=== PATIENT | female | born 1960 ===

== ENCOUNTER 2021-05-22 02:13 | Inpatient (IN) | payer MEDICAID, OTHER ==
[~2021-05-22] VITALS: Ht 157.5 cm; Wt 74.4 kg
--- NOTE | 2021-05-22 02:24 | NUR ---
CODE NEURO [email or web address]
[2021-05-22] MEDS ORDERED: SODIUM CHLORIDE FLUSH 10ML SYR IVF ONE (02:30)
[2021-05-22] MEDS ORDERED: LORazepam 2 MG/ML, 1ML ONE (02:38)
[2021-05-22] MEDS ORDERED: QUET100T4 PO (02:49)
--- NOTE | 2021-05-22 02:58 | NUR ---
BIB [facility] CODE [facility]O, PT UNABLE TO ANSWER QUESTIONS UPON 1ST PRESENTATION, PT WENT TO CT AND BACK TO T 4, TELE NEURO IN ROOM FOR ASSESSMENT, PT STARTED CRYING AND ANXIOUS, ATIVAN GIVEN PER MD LUCAS, PT CALMED EASILY, AND ABLE TO TALK NORMALLY AND ANSWER QUESTIONS, PT IS [employer] FROM [employer] AND IS STAYING IN A HOTEL IN [place] WITH HER SON
[2021-05-22 03:00] LABS: BASOPHILS % (AUTO) 0 % (0-1); EOSINOPHILS % (AUTO) 0 % (1-7); LYMPHOCYTES % (AUTO) 24 % (22-44); MEAN CORPUSCULAR HEMOGLOBIN 31.6 pg (27.0-34.8); MEAN CORPUSCULAR HGB CONC 33.9 g/dL (32.4-35.8); MONOCYTES % (AUTO) 8 % (2-9); NEUTROPHILS % (AUTO) 67 % (42-75); PLATELET COUNT 291 x10^3/uL (130-400); RED BLOOD COUNT 4.77 x10^6/uL (3.82-5.3); RED CELL DISTRIBUTION WIDTH 13.2 % (9.6-15.2)
[2021-05-22] MEDS ORDERED: PLEASE ENTER HEIGHT AND WEIGHT MC SCH (03:00)
[2021-05-22] MEDS ORDERED: LORazepam 2 MG/ML, 1ML IVPush ONE ×2 (03:00)
[2021-05-22] MEDS ORDERED: SODIUM CHLORIDE 0.9% 1,000ML IVBOLUS ONE (03:00)
[2021-05-22 03:08] LABS: CHLORIDE 105 mmol/L (98-107)
[2021-05-22 03:09] LABS: ALANINE AMINOTRANSFERASE 71 U/L (12-78); ALBUMIN 3.9 g/dL (3.4-5.0); ANION GAP 9 mmol/L (5-15); CALCIUM 9.3 mg/dL (8.5-10.1); CREATININE 0.66 mg/dL (0.55-1.02); SALICYLATE LEVEL 3.3 mg/dL (2.8-20.0)
[2021-05-22 03:10] LABS: ALKALINE PHOSPHATASE 92 U/L (45-117); BILIRUBIN,TOTAL 0.6 mg/dL (0.2-1.0); TOTAL PROTEIN 7.1 g/dL (6.4-8.2)
[2021-05-22 03:11] LABS: INTERNATIONAL NORMALIZED RATIO 1.02 (0.93-1.1); PROTHROMBIN TIME 10.9 Seconds (9.6-11.5)
--- NOTE | 2021-05-22 03:26 | NUR ---
PT BACK FROM [facility] AND RESTING ON [facility] A
[2021-05-22] MEDS ORDERED: OMNIPAQUE 350 MG/ML, 100ML BOTTLE ONE (03:40)
--- NOTE | 2021-05-22 04:24 | NUR ---
REPORT TO DULCE, PT MOVED TO 43
--- NOTE | 2021-05-22 04:24 | NUR ---
REPORT RECIEVED FROM OG BALTAZAR
[2021-05-22] MEDS ORDERED: ONDANSETRON 2MG/ML, 2ML IVPush PRN (05:00)
[2021-05-22] MEDS ORDERED: GLUCAGON 1 MG IM PRN (05:00)
[2021-05-22] MEDS ORDERED: MELATONIN 5 MG TABLET PO PRN (05:00)
[2021-05-22] MEDS ORDERED: DEXTROSE 50%, 50ML SYRINGE IVPush PRN (05:00)
[2021-05-22] MEDS ORDERED: DEXTROSE 4 GM TAB.CHEW PO PRN (05:00)
--- NOTE | 2021-05-22 05:13 | NUR ---
PT ASLEEP IN BED WHEN THIS RN ENTERED THE ROOM, BLOOD PRESSURE CUFF WAS TAKEN OFF BY PT, THIS RN PUT CUFF BACK ON PT AND PT WOKE UP SAYING "THAT THING IS TIGHT", THIS RN STATED THAT IT WAS NECESSARY SO WE CAN GET A BLOOD PRESSURE ON HER AND PT REPLIED "I DONT GIVE A SHIT", THIS RN ASKED PT WHAT BROUGHT HER INTO THE HOSPITAL AND SHE STATED, "I DONT KNOW, I PROBABLY CALLED THE AMBULANCE", PT NAD AT THIS TIME, VSS
[2021-05-22] MEDS ORDERED: PLEASE ENTER ALLERGIES MC SCH (06:00)
[2021-05-22] MEDS ORDERED: ENOXAPARIN 40 MG/0.4 ML ONE (06:18)
[2021-05-22] MEDS: ASPIRIN 81 MG TABLET EC PO SCH (06:25)
[2021-05-22] MEDS: ENOXAPARIN 40 MG/0.4 ML SQ SCH (06:25)
[2021-05-22] MEDS: INSULIN LISPRO 100 UNITS/ML, PEN SQ-INSULIN SCH ×4 (07:00→20:51)
[2021-05-22 07:23] VITALS: BP 129/87
[2021-05-22] MEDS: SODIUM CHLORIDE FLUSH 10ML SYR IVF SCH ×2 (07:37→20:51)
[2021-05-22] MEDS: ACETAMINOPHEN 325 MG TABLET PO PRN ×2 (08:02→18:42)
[2021-05-22] MEDS ORDERED: LORazepam 2 MG/ML, 1ML IVPush PRN (08:30)
[2021-05-22 10:43] LABS: MICROSCOPIC NOT IND
[2021-05-22] MEDS ORDERED: HALOPERIDOL 5 MG/ML IM ONE (11:30)
[2021-05-22] MEDS ORDERED: DIPHENHYDRAMINE 50 MG/ML, 1ML IM ONE (11:30)
[2021-05-22 15:46] LABS: AMPHETAMINE SCREEN, URINE Negative (Negative); BARBITURATE SCREEN, URINE Negative (Negative); BENZODIAZEPINE SCREEN, URINE Negative (Negative); CANNABINOID SCREEN, URINE Positive (Negative); COCAINE SCREEN, URINE Negative (Negative); METHADONE SCREEN, URINE Negative (Negative); OPIATE SCREEN, URINE Negative (Negative)
[2021-05-22 16:01] VITALS: BP 125/87
[2021-05-22 18:46] VITALS: BP 126/80
[2021-05-22] MEDS ORDERED: ATORVASTATIN 80 MG TABLET PO SCH (21:00)
[2021-05-22] MEDS ORDERED: QUETIAPINE 100MG TABLET PO SCH (21:00)
[2021-05-23 01:34] VITALS: BP 122/85
[2021-05-23 04:22] LABS: BASOPHILS % (AUTO) 1 % (0-1); EOSINOPHILS % (AUTO) 2 % (1-7); LYMPHOCYTES % (AUTO) 43 % (22-44); MEAN CORPUSCULAR HEMOGLOBIN 32.2 pg (27.0-34.8); MEAN CORPUSCULAR HGB CONC 34.1 g/dL (32.4-35.8); MEAN PLATELET VOLUME 8.1 fL (7.4-10.4); MONOCYTES % (AUTO) 9 % (2-9); NEUTROPHILS % (AUTO) 46 % (42-75); PLATELET COUNT 269 x10^3/uL (130-400); RED BLOOD COUNT 4.83 x10^6/uL (3.82-5.3); RED CELL DISTRIBUTION WIDTH 13.5 % (9.6-15.2)
[2021-05-23 04:36] LABS: ANION GAP 6 mmol/L (5-15); CALCIUM 9.2 mg/dL (8.5-10.1); CHLORIDE 111 mmol/L (98-107)
[2021-05-23 04:40] LABS: CHOL/HDL RATIO 1.6; CHOLESTEROL, TOTAL 134 mg/dL (140-239); CREATININE 0.91 mg/dL (0.55-1.02); HDL CHOL % 62 % (28-40); HDL CHOLESTEROL (DIRECT) 83 mg/dL (40-60); LDL CHOLESTEROL,CALCULATED 38 mg/dL (54-169); LDL/HDL RATIO 0.5 (0.5-3.0); TRIGLYCERIDES 66 mg/dL (50-200); VLDL CHOLESTEROL 13 mg/dL (0-25)
[2021-05-23] MEDS: ENOXAPARIN 40 MG/0.4 ML SQ SCH ×2 (05:00→08:56)
[2021-05-23] MEDS: ASPIRIN 81 MG TABLET EC PO SCH (05:30)
[2021-05-23 06:34] VITALS: BP 119/83
[2021-05-23] MEDS: INSULIN LISPRO 100 UNITS/ML, PEN SQ-INSULIN SCH (07:00)
[2021-05-23] MEDS ORDERED: HYDR-826 PO (07:56)
[2021-05-23] MEDS: SODIUM CHLORIDE FLUSH 10ML SYR IVF SCH (08:58)
== END 2021-05-23 09:45 | disposition home or self-care (01) | DRG 52 ==
LOC: ED 04:42 → EDIP 04:52 → 4WST 06:17
PROVIDERS: ADMIT Internal Medicine; ATTEND Family Medicine
DX: G93.40 Encephalopathy, unspecified (principal); F23 Brief psychotic disorder; R47.9 Unspecified speech disturbances; Z80.8 Family history of malignant neoplasm of other organs or systems; F41.1 Generalized anxiety disorder; F43.10 Post-traumatic stress disorder, unspecified
CPT/HCPCS: 36415; 70450; 70496; 70498; 70551; 80048; 80053; 80061; 80299; 80307; 80320; 80329; 81003; 82140; 82962; 83036; 83735; 85025; 85610; 85730; 93005; 96372; 96374; 99285; G0378; J1650; Q9967; 92523-GN; G0480; J1630; J2060; J7030